=== PATIENT | female | born 1970 | race Caucasian/White ===

== ENCOUNTER → 2024-01-22 14:37 | Outpatient (REF) | payer MEDICARE, OTHER, SELFPAY | LOC: HWRAD 14:37 | PROVIDERS: ATTENDING PHYSICIAN Internal Medicine; FAMILY PHYSICIAN Emergency Medicine Sports Medicine | DX: M15.0 Primary generalized (osteo)arthritis (principal) | CPT/HCPCS: 73560; 73565 ==